=== PATIENT | male | born 1995 | race Caucasian/White ===

== ENCOUNTER 2017-11-05 20:41 | Emergency (ER) | payer BC, OTHER ==
[2017-11-05 20:56] VITALS: BP 142/95
[2017-11-05] MEDS ORDERED: PENICILLIN VK 500 MG TAB PO ONE (21:20)
--- NOTE | 2017-11-05 21:23 | EDPHY ---
H & P Time Seen by Provider: 11/05/17 20:59 HPI/ROS: This patient describes sore throat of 3 days duration associated with fevers 2 days prior to arrival with chills and diaphoresis. These were subjective fevers with no temperature taken. No high fever since then but he reports mild myalgias along with his moderate sore throat currently 4/10 intensity. His girlfriend was diagnosed today with strep pharyngitis as well as positive influenza. Given his symptoms, the patient is concerned that he may have the same ailment. He reports associated mild cough that is dry and improving since it started 3 days ago. He was brought in by his mother by private vehicle for further evaluation of his symptoms. ROS: Constitutional: As per HPI HEENT: Coryza with no sinus pain. He still tolerating p.o. Intake despite sore throat. No ear pain. Pulmonary: No pleuritic pain. No respiratory distress No hemoptysis. Cardiovascular: No lightheadedness. No chest pain. GI: No abdominal pain. No nausea. No bloody stools. He reports 2-3 episodes of loose watery diarrhea for the past 3 days. Still tolerating good p.o. Intake. No anorexia. : No complaints line integumentary: No skin rash Neuro: No headache. No other complaints. 10 point ROS is otherwise negative Past Medical/Surgical History: Otherwise healthy Social History: Engineering student at [employer] Smoking Status: Never smoked Physical Exam: Physical Exam Vital signs are normal. General: No acute distress HEENT: Nose: Clear discharge bilaterally. No sinus tenderness to percussion. Ears: External canals and tympanic membranes are clear with no erythema or abnormal findings bilaterally. Oropharynx: Mild posterior pharyngeal erythema . No exudates. No dysphonia. No drooling or stridor. Eyes: Pupils equal and react to light. Extraocular motions are intact. Neck: Supple with no meningismus. No lymphadenopathy Lungs: Clear to auscultation bilaterally with no rales, rhonchi or wheeze. No respiratory distress. Cardiac: Regular rate and rhythm with no murmur gallop or rub Skin: No rash or pallor. Neuro: Alert with no focal deficits noted. Initial differential diagnosis: Strep pharyngitis, viral URI with viral pharyngitis, viral enteritis, influenza Constitutional: Initial Vital Signs Temperature (C) 37.1 C 04/21/18 20:53 Heart Rate 80 11/05/17 20:53 Respiratory Rate 16 11/05/17 20:53 Blood Pressure 142/95 H 11/05/17 20:53 O2 Sat (%) 96 11/05/17 20:53 O2 Delivery Mode Room Air Allergies/Adverse Reactions: No Known Allergies Allergy (Unverified 11/13/12 23:18) Home Medications: Medication Instructions Recorded Penicillin V Potassium [Penicillin 500 mg PO BID #20 tab 11/05/17 VK] MDM/Departure - MDM Medications Given: Discontinued Medications Penicillin V Potassium (Pen Vk) 500 mg PO EDNOW ONE PRN Reason: Protocol Stop: 11/05/17 21:21 Last Admin: 11/05/17 21:27 Dose: 500 mg ED Course/Re-evaluation: Patient declined analgesics while here. Studies: Rapid strep is negative: Rapid flu was negative. Discussion: Patient with strep and flu exposure with the symptoms and findings of pharyngeal erythema. Will treat him with penicillin VK. I counseled regarding this. Strep DNA test is pending. No clinical evidence of lower respiratory infection, sepsis or other red flag findings. Patient understands need to return emergency department should he develop any significant worsening despite the treatment plan. He will hold off on going school until fevers resolved. - Depart Disposition: Home, Routine, Self-Care Clinical Impression: Pharyngitis Qualifiers: Pharyngitis/tonsillitis etiology: unspecified etiology Qualified Code(s): J02.9 - Acute pharyngitis, unspecified Diarrhea Qualifiers: Diarrhea type: unspecified type Qualified Code(s): R19.7 - Diarrhea, unspecified Condition: Good Instructions: Pharyngitis (ED) Additional Instructions: Diagnosis: Pharyngitis 2. Diarrhea Plan: Drink plenty fluids Penicillin antibiotic Ibuprofen Tylenol as needed No school if he have fevers over the next day or 2. Return for any significant worsening despite treatment plan Stand Alone Forms: School Excuse Prescriptions: Penicillin V Potassium [Penicillin VK] 500 mg PO BID #20 tab Referrals: NONE *PRIMARY CARE P,. [Primary Care Provider] - As per Instructions Harleen Wong DO [Doctor of Osteopathy] - As per Instructions
== END 2017-11-05 21:30 | disposition home or self-care (01) ==
LOC: CED 20:41
DX: J02.9 Acute pharyngitis, unspecified (principal); R19.7 Diarrhea, unspecified
CPT/HCPCS: 87400-PO; 87880-PO